=== PATIENT | female | born 2000 | race Caucasian/White ===

== ENCOUNTER 2019-08-24 10:40 | Outpatient (CLI) | payer MEDICAID, SELFPAY ==
--- NOTE | ~2019-08-24 | US_ITS ---
EXAMINATION: US OB <= 14 weeks fetus DATE: 08/24/2019 11:27 INDICATION: First trimester dating TECHNIQUE: Real-time pelvic transabdominal and transvaginal ultrasound was performed. COMPARISON: None. FINDINGS: The uterus measures 12.0 x 6.2 x 8.7 cm. There is an intrauterine gestational sac. A yolk sac is identified. heart motion is identified measuring 157 beats per minute (bpm) by M-mode Do ppler. The crown rump length measures 3.8 cm , which correlates with an estimated gestational a ge of 10 weeks and 5 day(s) (+/-) 7 day(s). The right ovary measures 3.0 x 1.5 x 1.5 cm. The left ovary measures 1.3 x 3.4 x 1.9 cm. There is nor mal vascular flow in the ovaries. There is no free fluid in the pelvis. IMPRESSION: 1. Live intrauterine with an estimated gestational age of 10 weeks and 5 day(s) (+/-) 7 day (s) and an estimated delivery date of 03/16/2020. Reviewed, dictated and finalized at location A. IMPRESSION: 1. Live intrauterine with an estimated gestational age of 10 weeks an d 5 day(s) (+/-) 7 day(s) and an estimated delivery date of 03/16/2020.
== END 2019-08-24 10:41 | disposition home or self-care (01) ==
LOC: ANHIMG 10:49
PROVIDERS: Visit Provider Obstetrics & Gynecology
DX: Z34.91 Encounter for supervision of normal pregnancy, unspecified, first trimester (principal); Z3A.10 10 weeks gestation of pregnancy
CPT/HCPCS: 76801

== ENCOUNTER 2020-01-24 12:56 | Outpatient (RCR) | payer OTHER, SELFPAY | END 2020-02-18 07:19 | disposition home or self-care (01) | LOC: ANHOBOP 12:56 | PROVIDERS: Visit Provider Obstetrics & Gynecology | DX: O24.419 Gestational diabetes mellitus in pregnancy, unspecified control (principal); Z3A.00 Weeks of gestation of pregnancy not specified | CPT/HCPCS: 99199 ==

== ENCOUNTER 2020-03-11 06:27 | Inpatient (IN) | payer OTHER, SELFPAY ==
[2020-03-11] VITALS (83 sets, daily range): BP systolic 80–136; BP diastolic 40–89; PULSE 74–131; RESP 16; TEMP 36.6–36.9; O2SAT 84–100; BMI 21.9
--- NOTE | 2020-03-11 07:04 | LDADM ---
This patient, Donna Chowdhury, was admitted to Labor/Delivery/Recovery 105 on 03/11/20 at 06:27. Plans for labor, pain management and were discussed with patient. Patient/family oriented to hospital policies and general routines including ID bracelet, bed and alarms, visiting hours, pain management, procedures, bathroom and other care routines, personal items, smoking policy, room service/diet and guest tray routines, security routines, and visiting hours. Patient/Family are encouraged to report perceived risks to care and to ask questions if they do not understand what they are told or what they should do. See OBIX for further documentation.
[2020-03-11] MEDS: LACTATED RINGERS 1,000 ML 125 ML IV CONT ×2 (07:16→09:39)
[2020-03-11 07:17] LABS: Glucose Point of Care 113 (65-105)
[2020-03-11] MEDS: OXYTOCIN 30 UNITS/NS 500 ML 30 UNITS/500 ML BAG 6 UNITS IV CONT (07:17)
--- NOTE | 2020-03-11 07:35 | WPDOBADMIT ---
Obstetrics - Admit Note Admission Note: record reviewed. No pertinent additions to the history and/or any subsequent changes in the physical findings that are not consistent with the expected course of the were found.MIL, /-1, AROM small amount of clear odorless fluid Additions to the history and/or subsequent changes in the physical findings follow. None.
[2020-03-11 07:46] LABS: Basophils Percent Auto 0.4 % (0.2-1.2); Eosinophils Absolute Auto 0.2 K/mm3 (0-0.3); Eosinophils Percent Auto 2.4 % (0-4.4); Hematocrit 34.2 % (37.0-47.0); Hemoglobin 10.8 g/dL (12.0-15.0); Immature Granulocyte Absolute 0.06 K/mm3 (0.00-0.031); Immature Granulocyte Percent A 0.7 % (0-0.5); Lymphocytes Absolute Auto 2.51 K/mm3 (0.9-3.2); Mean Corpuscular HGB Conc 31.6 g/dl (32-36); Mean Corpuscular Hemoglobin 23.9 pg (26-34); Mean Corpuscular Volume 75.8 fl (80-100); Mean Platelet Volume 11.6 fl (7.4-10.4); Monocytes Absolute Auto 0.6 K/mm3 (0.1-0.6); Monocytes Percent Auto 6.8 % (2.6-8.5); Neutrophils Percent Auto 59.7 % (45.5-73.1); Platelet Count Result 174 k/mm3 (150-375); Red Blood Count 4.51 M/mm3 (4.2-5.4); White Blood Count 8.4 K/mm3 (4.5-10.0)
--- NOTE | 2020-03-11 07:53 | WPDANESEPP ---
Anes - Eval Pre Procedure Procedure: labor epidural Date/Time: 03/11/20 07:53 Surgeon: Eloy Pre Op Diagnosis: Induction of Labor Patient Data Age: 19 Gender: F Height: 5 ft 4 in Weight: 58 kg Last Vital Signs Pulse 88 03/11/20 07:45 BP 111/71 03/11/20 07:45 Allergies Allergy/AdvReac Type Severity Reaction Status Date / Time No Known Allergies Allergy Unverified 10/03/16 17:44 Home Medications Medication Instructions Recorded Confirmed Type levothyroxine 75 mcg PO DAILY 03/11/20 03/11/20 History ondansetron [Zofran ODT] 4 mg PO Q6H PRN 03/11/20 03/11/20 History vit no.[id number]-[id number] 1 tablet PO DAILY 03/11/20 03/11/20 History [Classic ] Laboratory Tests 03/11/20 03/11/20 03/11/20 06:46 06:46 06:46 WBC 8.4 K/mm3 K/mm3 (4.5-10.0) RBC 4.51 M/mm3 M/mm3 (4.2-5.4) Hgb 10.8 g/dL L g/dL (12.0-15.0) Hct 34.2 % L % (37.0-47.0) MCV 75.8 fl L fl (80-100) MCH 23.9 pg L pg (26-34) MCHC 31.6 g/dl L g/dl (32-36) RDW 14.0 % % (11.5-14.5) Plt Count 174 k/mm3 k/mm3 (150-375) MPV 11.6 fl H fl (7.4-10.4) Immature Gran % (Auto) 0.7 % H % (0-0.5) Neut % (Auto) 59.7 % % (45.5-73.1) Lymph % (Auto) 30.0 % % (18.3-44.2) [place] % (Auto) 6.8 % % (2.6-8.5) Eos % (Auto) 2.4 % % (0-4.4) Baso % (Auto) 0.4 % % (0.2-1.2) Lymph # (Auto) 2.51 K/mm3 K/mm3 (0.9-3.2) [place] # (Auto) 0.6 K/mm3 K/mm3 (0.1-0.6) Eos # (Auto) 0.2 K/mm3 K/mm3 (0-0.3) Baso # (Auto) 0.0 K/mm3 K/mm3 (0.0-0.1) Abs Immat Gran (auto) 0.06 K/mm3 H K/mm3 (0.00-0.031) Absolute Neuts (auto) 5.0 K/mm3 K/mm3 (1.3-6.7) Absolute Nucleated RBC 0.0 K/mm3 K/mm3 (0.0-0.012) Nucleated RBC % 0.0 % % (0.0-0.2) POC Capillary Glucose TSH Pending RPR Pending 03/11/20 07:12 WBC RBC Hgb Hct MCV MCH MCHC RDW Plt Count MPV Immature Gran % (Auto) Neut % (Auto) Lymph % (Auto) [place] % (Auto) Eos % (Auto) Baso % (Auto) Lymph # (Auto) [place] # (Auto) Eos # (Auto) Baso # (Auto) Abs Immat Gran (auto) Absolute Neuts (auto) Absolute Nucleated RBC Nucleated RBC % POC Capillary Glucose 113 mg/dl H mg/dl (65-105) TSH RPR Patient hx anesthesia problems: none Family hx anesthesia problems: none [facility] Past Medical History Medical History (Updated 03/11/20 @ 07:54 by Kelvin Hernandez CRNA) Hypothyroid Social History Social History Smoking status: Former smoker Substance use: never Gender identity (if verbalized by the patient): Female Sexual Orientation (if Verbalized by the Patient): Straight or Heterosexual Spiritual care concerns: No Exam Day of Procedure 03/11/20 07:53 Patient weight: normal Heart: regular rate and rhythm Lungs: clear to auscultation and normal air movement Neurological: alert and oriented
[2020-03-11] MEDS: fentaNYL CITRATE INJ (*CRX) 100 MCG/2 ML VIAL 50 MCG IV PUSH (09:42)
[2020-03-11 12:25] LABS: Glucose Point of Care 74 (65-105)
--- NOTE | 2020-03-11 15:49 | PM.OBPRVD ---
OB - Delivery Note Procedure Delivery date: 03/11/20 (vaginal delivery) events: Gestational Diabetes Intrapartal events: None Induction method: AROM and per pitocin protocol Delivery monitor: external FHT and external uterine Route of delivery: Laceration Description: Perineal - 1st Degree Delivery repair: vicryl Specimen: Yes Quantitative Blood Loss (ml): 322 Anesthesia type: Epidural Disposition: other () Baby Date of : 03/11/20 Time of : 15:33 Weeks of gestation at delivery: 39 Infant gender: Male Weight (pounds): 7 Weight (ounces): 8 presentation: vertex position: Left Occiput Anterior Placenta delivery description: Spontaneous and Abnormal Configuration (heart shaped, hx uterine septum) cord vessel description: 3 Vessels, Nuchal Cord, Tight and Clamped/Cut score one minute: 7 score five minutes: 9 Narrative: unable to deliver through cor, cut and clamped on perineum, baby delivered easily, to warmer with rn, mother and baby in stable condition
--- NOTE | 2020-03-11 15:52 | PM.IMHP ---
H&P: HPI History of Present Illness Date/Time: 03/11/20 15:52 Chief Complaint: MIL for GDM diet controlled Narrative: Donna Chowdhury is a 19 year old female [facility] Past Medical History Medical History (Updated 03/11/20 @ 15:52 by Camille Quintero CNM) Hypothyroid Social History Social History Smoking status: Former smoker Substance use: never Gender identity (if verbalized by the patient): Female Sexual Orientation (if Verbalized by the Patient): Straight or Heterosexual Spiritual care concerns: No Meds Home Medications and Allergies Home Medications Medication Instructions Recorded Confirmed Type levothyroxine 75 mcg PO DAILY 03/11/20 03/11/20 History ondansetron [Zofran ODT] 4 mg PO Q6H PRN 03/11/20 03/11/20 History vit no.[id number] 1 tablet PO DAILY 03/11/20 03/11/20 History [Classic ] Allergies Allergy/AdvReac Type Severity Reaction Status Date / Time No Known Allergies Allergy Unverified 10/03/16 17:44 Vital Signs Vital Signs - 24 hr 03/11/20 07:05 03/11/20 07:15 03/11/20 07:30 Temperature 36.6 C Pulse Rate 105 H 103 H Blood Pressure 108/69 98/67 L Pulse Oximetry 03/11/20 07:31 03/11/20 07:45 03/11/20 08:00 Temperature Pulse Rate 104 H 88 84 Blood Pressure 102/65 111/71 113/74 Pulse Oximetry 03/11/20 08:15 03/11/20 08:30 03/11/20 09:00 Temperature Pulse Rate 90 92 106 H Blood Pressure 100/64 93/51 L 110/75 Pulse Oximetry 03/11/20 09:30 03/11/20 09:54 03/11/20 10:00 Temperature 36.6 C Pulse Rate 88 105 H Blood Pressure 103/81 136/83 Pulse Oximetry 100 03/11/20 10:03 03/11/20 10:04 03/11/20 10:05 Temperature Pulse Rate 104 H 105 H Blood Pressure 119/78 112/70 Pulse Oximetry 98 85 L 03/11/20 10:06 03/11/20 10:08 03/11/20 10:10 Temperature Pulse Rate 104 H 94 97 Blood Pressure 109/79 110/74 108/69 Pulse Oximetry 100 03/11/20 10:12 03/11/20 10:14 03/11/20 10:15 Temperature Pulse Rate 99 102 H Blood Pressure 110/60 106/60 Pulse Oximetry 99 03/11/20 10:16 03/11/20 10:18 03/11/20 10:20 Temperature Pulse Rate 81 85 98 Blood Pressure 118/70 115/66 106/63 Pulse Oximetry 100 03/11/20 10:22 03/11/20 10:24 03/11/20 10:25 Temperature Pulse Rate 100 83 Blood Pressure 104/62 107/68 Pulse Oximetry 100 03/11/20 10:26 03/11/20 10:28 03/11/20 10:30 Temperature Pulse Rate 114 H 92 83 Blood Pressure 94/61 L 100/72 107/67 Pulse Oximetry 100 03/11/20 10:32 03/11/20 10:34 03/11/20 10:35 Temperature Pulse Rate 98 79 Blood Pressure 106/63 109/67 Pulse Oximetry 99 03/11/20 10:36 03/11/20 10:39 03/11/20 10:40 Temperature Pulse Rate 117 H 126 H 103 H Blood Pressure 100/50 L 129/84 124/75 Pulse Oximetry 03/11/20 10:41 03/11/20 10:42 03/11/20 10:44 Temperature Pulse Rate 87 89 Blood Pressure 111/53 L 108/70 Pulse Oximetry 100 03/11/20 10:46 03/11/20 10:48 03/11/20 10:50 Temperature Pulse Rate 95 88 88 Blood Pressure 94/56 L 99/69 L 98/60 L Pulse Oximetry 99 100 03/11/20 10:55 03/11/20 11:00 03/11/20 11:01 Temperature Pulse Rate 80 Blood Pressure 98/49 L Pulse Oximetry 100 99 03/11/20 11:05 03/11/20 11:10 03/11/20 11:15 Temperature Pulse Rate 81 Blood Pressure 97/63 L Pulse Oximetry 100 99 100 03/11/20 11:20 03/11/20 11:25 03/11/20 11:26 Temperature Pulse Rate Blood Pressure Pulse Oximetry 100 100 100 03/11/20 11:30 03/11/20 11:31 03/11/20 11:45 Temperature 36.8 C Pulse Rate 84 76 Blood Pressure 93/54 L 94/54 L Pulse Oximetry 100 03/11/20 12:00 03/11/20 12:15 03/11/20 12:30 Temperature Pulse Rate 76 76 89 Blood Pressure 80/40 L 96/61 L 104/68 Pulse Oximetry 03/11/20 12:45 03/11/20 13:00 03/11/20 13:15 Temperature 36.8 C Pulse Rate 81 90 110 H Blood Pressure 97/71 L 98/58 L 104/65 Pulse Oximetry 02/27
[2020-03-11] MEDS: OXYTOCIN 30 UNITS/NS 500 ML 30 UNITS/500 ML BAG 125 UNITS IV CONT (16:06)
[2020-03-11] MEDS: ceFAZolin 2 GM/D5W 50 ML 2 GM/50 ML BAG IVPB (16:06)
--- NOTE | 2020-03-11 19:05 | OBPPTRN ---
Patient transferred to post room #285 via wheelchair. Support person present. Oriented to unit, room, information board, rooming in, admission packet and security measures. Patient verbalizes understanding.
[2020-03-11] MEDS: IBUPROFEN 600 MG TABLET PO (19:35)
[2020-03-12] MEDS: IBUPROFEN 600 MG TABLET PO ×3 (04:32→23:10)
[2020-03-12 05:37] LABS: Hematocrit 29.2 % (37.0-47.0); Hemoglobin 9.1 g/dL (12.0-15.0)
[2020-03-12] MEDS: MULTIVIT/MIN/PREN/FOL AC/IRON TABLET 1 TAB PO (06:59)
[2020-03-12] MEDS: POLYSACCHARIDE IRON COMPLEX 150 MG CAPSULE PO ×2 (06:59→16:36)
[2020-03-12] MEDS: LEVOTHYROXINE SODIUM 75 MCG TABLET PO (06:59)
[2020-03-12] MEDS: DOCUSATE SODIUM 100 MG CAPSULE PO ×2 (06:59→16:36)
[2020-03-12] MEDS: LANOLIN (LANSINOH) 7.5 GM CREAM 1 APPLIC TOPICAL (07:57)
--- NOTE | 2020-03-12 07:59 | P.PNOB_ITS ---
OB - PN: Subj Subjective Date/time seen: 03/12/20 07:59 Patient comments: no complaints baby status: doing well OB - PN: Obj Data Labs CBC & Chem 7: 03/12/20 04:54 Labs: Laboratory Results - last 24 hr 03/11/20 03/11/20 03/11/20 06:46 06:46 12:23 Hgb Hct POC Capillary Glucose 74 TSH 4.410 Blood Type O Positive Antibody Screen Negative 03/12/20 04:54 Hgb 9.1 L Hct 29.2 L POC Capillary Glucose TSH Blood Type Antibody Screen OB - PN A/P Plan day: 1 Plan: routine care Time Spent With Patient Time: Total time spent is greater than 50% in coordination of care (as documented) at patient's floor/unit and/or counseling patient: Time with patient: less than 15 minutes Review of Systems Review of Systems: All systems reviewed & are unremarkable except as noted in HPI and below Exam Narrative: Exam Narrative: Fundus firm and vaginal flow controlled. No lower ext redness, warmth, or edema. Negative homans. Const: General: comfortable Chest: Breast/axilla inspection: normal inspection of the breasts Resp: Effort & Inspection: normal respiratory effort Cardio: Rate: regular rate GI: GI Palp: Yes Soft to palpation Psych: Appearance: grossly normal Affect: normal affect Attitude: co operative Thought content: Yes Normal thought content present Judgement: Good judgement present (Psych)
[2020-03-12 08:25] VITALS: BP 84/49; PULSE 81; RESP 16; TEMP 36.9; O2SAT 98
[2020-03-12 09:10] LABS: Rapid Plasma Reagin Non-Reactive (NonReactive)
--- NOTE | 2020-03-12 11:19 | WPDANLDPN2 ---
Anes-Prog Note L&D Date/Time: 03/12/20 11:19 Comfortable throughout: labor Neuraxial method: epidural Epidural/Spinal procedure site: clean & non-tender Neuro status: Neuro function grossly intact. Cardiovascular status: normal Respiratory status: normal Airway patency: baseline Mental status: baseline Post-Op hydration status: normal Vital Signs: Last Vital Signs Temp 36.9 C 03/12/20 08:25 Pulse 81 03/12/20 08:25 Resp 16 03/12/20 08:25 BP 84/49 L 03/12/20 08:25 Pulse Ox 98 03/12/20 08:25 Pain score (VAS): 0/10. Patient resting in bed at time of assessment, appears comfortable. Support person at bedside. I/O: Intake & Output 03/11/20 03/12/20 03/12/20 23:59 07:59 15:59 Intake Total 2049 Balance 2049 Post-procedural complaints: none Patient feedback: Patient satisfied with anesthetic care.
[2020-03-12 20:05] VITALS: BP 111/67; PULSE 103; RESP 16; TEMP 36.8; O2SAT 99
[2020-03-13] MEDS: DOCUSATE SODIUM 100 MG CAPSULE PO (06:30)
[2020-03-13] MEDS: POLYSACCHARIDE IRON COMPLEX 150 MG CAPSULE PO (06:30)
[2020-03-13] MEDS: LEVOTHYROXINE SODIUM 75 MCG TABLET PO (06:30)
[2020-03-13] MEDS: MULTIVIT/MIN/PREN/FOL AC/IRON TABLET 1 TAB PO (06:30)
[2020-03-13] MEDS: IBUPROFEN 600 MG TABLET PO (06:31)
[2020-03-13 07:50] VITALS: BP 112/60; PULSE 94; RESP 18; TEMP 36.8
--- NOTE | 2020-03-13 07:51 | P.PNOB_ITS ---
OB - PN: Subj Subjective Date/time seen: 03/13/20 07:51 c/o abscess in tooth, has appt at [facility] wanting antibiotics on d/c Patient comments: no complaints [place] baby status: doing well OB - PN: Obj Data Labs CBC & Chem 7: 03/12/20 04:54 Labs: Laboratory Results - last 24 hr 03/11/20 06:46 RPR Non-reactive OB - PN A/P Plan day: 2 Plan: routine care and discharge home Time Spent With Patient Time: Total time spent is greater than 50% in coordination of care (as documented) at patient's floor/unit and/or counseling patient: Review of Systems Review of Systems: All systems reviewed & are unremarkable except as noted in HPI and below Exam Const: General: cooperative Orientation/consciousness: patient oriented x3
--- NOTE | 2020-03-13 07:53 | PM.OBDSVD ---
DS: Admitting Diagnosis Admitting Diagnosis Admitting Diagnosis: Elective induction, GDM OB - DS: Summary OB Procedures : None OB Procedures Intrapartum: Spontaneous Vag Delivery OB Procedures: : None Time Spent with Patient Time attestation: Total time spent providing and/or coordinating discharge services: DS: Data Data Completed and Pending Pending studies at discharge: Pending at discharge 03/11/20 16:46 Surgical [PTH] Routine Labs on day of discharge: Labs from last 24 hours 03/11/20 06:46 RPR Non-reactive Discharge Plan Discharge Attending physician on discharge: Rosalinda Lyons Discharging Clinician: Camille Quintreo Patient Disposition: Home, Self-Care Activity: pelvic rest Diet: regular Patient Instructions: Antibiotic Form Stand Alone Forms: General Discharge Information Follow-up/Referrals: Camille Quintero CNM [Certified Nurse Setter Helper] - 4 Weeks Discharge Medications: Continued levothyroxine 75 mcg Capsule 75 mcg PO DAILY RF: 0 Classic 28 mg iron- 800 mcg Tablet 1 tablet PO DAILY RF: 0 Discontinued ondansetron [Zofran ODT] 4 mg Tablet,Disintegrating 4 mg PO Q6H PRN (Reason: nausea) RF: 0 Date of admission: 03/11/20 06:27 Primary Care Provider: PHYSICIAN,[employer]QUIPMENT TENDER Admitting Provider: Rosalinda Lyons Attending physician on admission: Rosalinda Lyons Condition: Stable
[2020-03-13] MEDS: MEASLES,MUMPS,RUBELLA VACCINE 0.5 ML VIAL SUB-Q (12:08)
[2020-03-14 09:05] VITALS: BP 90/62; PULSE 87; RESP 16; TEMP 37.3; O2SAT 100
== END 2020-03-13 12:25 | disposition home or self-care (01) | DRG 560 ==
LOC: ANHLDR 06:39 → ANHOB2 19:14
PROVIDERS: Advanced Practice Midwife; Admitting Provider Obstetrics & Gynecology; Visit Provider Obstetrics & Gynecology
DX: O69.1XX0 Labor and delivery complicated by cord around neck, with compression, not applicable or unspecified (principal); O70.0 First degree perineal laceration during delivery; O24.420 Gestational diabetes mellitus in childbirth, diet controlled; Z3A.39 39 weeks gestation of pregnancy; Z37.0 Single live birth
CPT/HCPCS: 36415; 84443; 85014; 85018; 85025; 86592; 86850; 86900; 86901; 88307; 90710; A9270; J0131; J0690; J2590; J2795; J3010; J7120

== ENCOUNTER 2020-05-08 12:51 | Emergency (ER) | payer OTHER, SELFPAY ==
[2020-05-08 12:59] VITALS: BP 96/67; PULSE 78; RESP 18; TEMP 36.8; O2SAT 99
--- NOTE | 2020-05-08 14:21 | ED.DENTAL ---
HPI - Dental/Oral General Chief complaint: Dental/Oral <Warren Kraus PA-C - Last Filed: 05/08/20 14:24> Stated complaint: dental pain <Warren Kraus PA-C - Last Filed: 05/08/20 14:24> Time Seen by Provider: 05/08/20 12:54 <Warren Kraus PA-C - Last Filed: 05/08/20 14:24> Source: patient <Warren Kraus PA-C - Last Filed: 05/08/20 14:24> Mode of arrival: ambulatory <Warren Kraus PA-C - Last Filed: 05/08/20 14:24> Limitations: no limitations <Warren Kraus PA-C - Last Filed: 05/08/20 14:24> History of Present Illness HPI Narrative: Patient is a 20-year-old female who presents with right-sided jaw pain history of gross dental decay has close follow-up with dental school notes she has had this issue in the past as well not currently take anything for symptoms does not appear distressed or uncomfortable on arrival <Warren Kraus PA-C - Last Filed: 05/08/20 14:24> Related Data Allergies/adverse reactions: Allergies Allergy/AdvReac Type Severity Reaction Status Date / Time No Known Allergies Allergy Verified 05/08/20 13:02 <Warren Kraus PA-C - Last Filed: 05/08/20 14:24> Review of Systems Review of Systems: All systems reviewed & are unremarkable except as noted in HPI and below <Warren Kraus PA-C - Last Filed: 05/08/20 14:24> PMFSH Past Medical History Medical History: Medical History Hypothyroid <Warren Kraus PA-C - Last Filed: 05/08/20 14:24> Social History Social History: Social History Smoking status: Former smoker Substance use: never Gender identity (if verbalized by the patient): Female Spiritual care concerns: No <Warren Kraus PA-C - Last Filed: 05/08/20 14:24> Exam Narrative: Exam Narrative: GENERAL: Well-appearing, well-nourished, and in no acute distress. HEAD: Normocephalic, atraumatic. EYES: PERRLA and EOMI. ENT: Nares clear, no rhinorrhea or epistaxis. Mucous membranes moist. Gross dental caries no space-occupying lesions noted uvula midline no trismus or drooling NECK: Supple. No adenopathy or masses. CHEST: Clear to auscultation. No respiratory distress. No wheezes rales or rhonchi HEART: Regular rate and rhythm. No murmur heard. EXTREMITIES: Normal range of motion. No edema. SKIN: Warm, dry, no rash. NEURO: No focal deficits. Alert and oriented x3. Cranial nerves II through XII grossly intact PSYCH: Normal mood and affect. <NOMI Koch Last Filed: 05/08/20 14:24> Course Course Emergency Course: Patient in the room aware of case findings treatment plan diagnosis agreeing to follow-up with dentistry as planned felt appropriate for outpatient reevaluation agreeing to return if symptoms worsen <NOMI Koch Last Filed: 05/08/20 14:24> Vital Signs Vital signs: Vital Signs Temperature 98.3 F 05/08/20 12:59 Pulse Rate 78 05/08/20 12:59 Respiratory Rate 18 05/08/20 12:59 Blood Pressure 96/67 L 05/08/20 12:59 Pulse Oximetry 99 05/08/20 12:59 Temperature 98.3 F 05/08/20 12:59 Pulse Rate 78 05/08/20 12:59 Respiratory Rate 18 05/08/20 12:59 Blood Pressure 96/67 L 05/08/20 12:59 Pulse Oximetry 99 05/08/20 12:59 <NOMI Koch Last Filed: 05/08/20 14:24> Vital Signs Temperature 98.3 F 05/08/20 12:59 Pulse Rate 78 05/08/20 12:59 Respiratory Rate 18 05/08/20 12:59 Blood Pressure 96/67 L 05/08/20 12:59 Pulse Oximetry 99 05/08/20 12:59 Temperature 98.3 F 05/08/20 12:59 Pulse Rate 78 05/08/20 12:59 Respiratory Rate 18 05/08/20 12:59 Blood Pressure 96/67 L 05/08/20 12:59 Pulse Oximetry 99 05/08/20 12:59 <Rosette Sheets MD - Last Filed: 05/08/20 15:59> MDM - Dental/Oral MDM Narrative Medical decision making narrative: P
== END 2020-05-08 14:39 | disposition home or self-care (01) ==
PROVIDERS: Emergency Provider General Practice; PCP Family Medicine
DX: K04.7 Periapical abscess without sinus (principal); E03.9 Hypothyroidism, unspecified; Z87.891 Personal history of nicotine dependence
CPT/HCPCS: 99283

== ENCOUNTER 2020-08-22 15:38 | Emergency (ER) | payer OTHER, SELFPAY ==
[2020-08-22 15:40] VITALS: BP 137/88; PULSE 87; RESP 16; TEMP 37; O2SAT 100
[2020-08-22 16:58] LABS: Basophils Percent Auto 0.7 % (0.2-1.2); Eosinophils Absolute Auto 0.2 K/mm3 (0-0.3); Eosinophils Percent Auto 3.3 % (0-4.4); Hematocrit 40.6 % (37.0-47.0); Hemoglobin 12.6 g/dL (12.0-15.0); Lymphocytes Absolute Auto 1.48 K/mm3 (0.9-3.2); Lymphocytes Percent Auto 27.3 % (18.3-44.2); Mean Corpuscular Hemoglobin 24.5 pg (26-34); Mean Corpuscular Volume 78.8 fl (80-100); Mean Platelet Volume 11.6 fl (7.4-10.4); Monocytes Absolute Auto 0.4 K/mm3 (0.1-0.6); Monocytes Percent Auto 7.6 % (2.6-8.5); Neutrophils Absolute Auto 3.3 K/mm3 (1.3-6.7); Neutrophils Percent Auto 61.1 % (45.5-73.1); Platelet Count Result 194 k/mm3 (150-375); Red Blood Count 5.15 M/mm3 (4.2-5.4); Red Cell Distribution Width 16.1 % (11.5-14.5); White Blood Count 5.4 K/mm3 (4.5-10.0)
[2020-08-22 17:08] LABS: Alanine Aminotransferase 10 U/L (4-35); Albumin Level 4.5 g/dL (3.5-5.1); Alkaline Phosphatase 45 U/L (38-126); Anion Gap 8 mmol/L (8-16); Aspartate Amino Transferase 22 U/L (14-36); Bilirubin,Total 0.5 mg/dL (0.2-1.3); Blood Urea Nitrogen 8 mg/dL (7-17); Calcium 9.5 mg/dL (8.4-10.2); Carbon Dioxide 26 mmol/L (22-30); Chloride 105 mmol/L (98-107); Estimated CRCL calculation 78 ml/min; Estimated Glomerular Filt Rate > 60; Glucose 112 mg/dL (65-105); Lipase 93 U/L (23-300); Potassium 4.3 mmol/L (3.4-5.0); Sodium 139 mmol/L (137-145)
[2020-08-22 17:09] LABS: Acetaminophen 11 ug/mL (10-30)
[2020-08-22 17:21] LABS: Add Urine Microscopic? YES; Appearance Urine Cloudy (Clear); Bacteria Urine Trace /hpf; Bilirubin Urine Negative (Negative); Blood Urine Negative (Negative); Color Urine Straw (Yellow); Glucose Urine UA Negative (Negative); Ketones Urine Negative (Negative); Leukocyte Esterase Ur 3+ LEU/UL (Negative); Mucus Urine Rare /lpf; Nitrate Urine Negative (Negative); Protein Urine Negative (Negative); RBC Urine 0-2 /hpf (0-2); Specific Grav Ur 1.006 (1.001-1.035); Squamous Epithelial Cell Urine Many /hpf (Few); Urobilinogen Urine Negative mg/dL (<2.0)
[2020-08-22 17:24] LABS: Amphetamine Screen Urine Negative (Negative); Barbiturate Screen Urine Negative (Negative); Benzodiazepines Screen Urine Negative (Negative); Cannabinoid Screen Urine Negative (Negative); Cocaine Screen Urine Negative (Negative); Methadone Screen Urine Negative (Negative); Opiate Screen Urine Negative (Negative); Phencyclidine Screen Urine Negative (Negative)
--- NOTE | 2020-08-22 18:20 | ED.DENTAL ---
HPI - Dental/Oral General Chief complaint: Dental/Oral Stated complaint: my mom gave me pills now i'm vomiting Time Seen by Provider: 08/22/20 17:28 Source: patient Mode of arrival: ambulatory Limitations: no limitations History of Present Illness HPI Narrative: Patient complaining of lower gum pain started yesterday, status post root canal procedure 2 days ago. Patient denies any fever, chills, nausea, vomiting, headache Related Data Allergies Allergy/AdvReac Type Severity Reaction Status Date / Time No Known Allergies Allergy Verified 05/08/20 13:02 Review of Systems Review of Systems: Narrative: CONSTITUTIONAL: Denies fever, chills, or sweats. EYES: Denies visual changes, redness, or discharge. ENT: Denies rhinorrhea, congestion, sore throat, or otalgia. CARDIOVASCULAR: Denies chest pain, palpitations, or edema. RESPIRATORY: Denies cough or dyspnea. GASTROINTESTINAL: Denies abdominal pain, nausea, vomiting, or diarrhea. GENITOURINARY: Denies dysuria or hematuria. SKIN: Denies rash or itching. MUSCULOSKELETAL: Denies back pain, joint pain, or myalgia. NEUROLOGIC: Denies headache, numbness, or weakness. PSYCHIATRIC: Denies anxiety or depression. PMFSH Past Medical History Medical History Hypothyroid Social History Social History Smoking status: Former smoker Substance use: never Gender identity (if verbalized by the patient): Female Spiritual care concerns: No Exam Narrative: Exam Narrative: General appearance: Well-developed, well-nourished Skin: Normal color Head: Normocephalic, nontraumatic Eyes: Clear conjunctiva ENT: Oropharynx normal, ears normal, nose normal, diffuse tenderness lower gum, dental caries, no swelling Neck: Supple, nontender Neurologic: Alert and oriented ?3, PIGMENT MIXER is normal as tested, no gross motor deficit Course Course Emergency Course: Stable Vital Signs Vital signs: Vital Signs Temperature 37.0 C 08/22/20 15:40 Pulse Rate 87 08/22/20 15:40 Respiratory Rate 16 08/22/20 15:40 Blood Pressure 137/88 08/22/20 15:40 Pulse Oximetry 100 08/22/20 15:40 Temperature 37.0 C 08/22/20 15:40 Pulse Rate 87 08/22/20 15:40 Respiratory Rate 16 08/22/20 15:40 Blood Pressure 137/88 08/22/20 15:40 Pulse Oximetry 100 08/22/20 15:40 MDM - Dental/Oral MDM Narrative Medical decision making narrative: Dental infection Lab Data Result diagrams: 08/22/20 16:52 08/22/20 16:52 Labs: Lab Results 08/22/20 08/22/20 08/22/20 Range/Units 16:52 16:52 16:52 WBC 5.4 (4.5-10.0) K/mm3 RBC 5.15 (4.2-5.4) M/mm3 Hgb 12.6 D (12.0-15.0) g/dL Hct 40.6 (37.0-47.0) % MCV 78.8 L (80-100) fl MCH 24.5 L (26-34) pg MCHC 31.0 L (32-36) g/dl RDW 16.1 H (11.5-14.5) % Plt Count 194 (150-375) k/mm3 MPV 11.6 H (7.4-10.4) fl Immature Gran % (Auto) 0.0 (0-0.5) % Neut % (Auto) 61.1 (45.5-73.1) % Lymph % (Auto) 27.3 (18.3-44.2) % [place] % (Auto) 7.6 (2.6-8.5) % Eos % (Auto) 3.3 (0-4.4) % Baso % (Auto) 0.7 (0.2-1.2) % Lymph # (Auto) 1.48 (0.9-3.2) K/mm3 [place] # (Auto) 0.4 (0.1-0.6) K/mm3 Eos # (Auto) 0.2 (0-0.3) K/mm3 Baso # (Auto) 0.0 (0.0-0.1) K/mm3 Abs Immat Gran (auto) 0.00 (0.00-0.031) K/mm3 Absolute Neuts (auto) 3.3 (1.3-6.7) K/mm3 Absolute Nucleated RBC 0.0 (0.0-0.012) K/mm3 Nucleated RBC % 0.0 (0.0-0.2) % Sodium 139 (137-145) mmol/L Potassium 4.3 (3.4-5.0) mmol/L Chloride 105 (98-107) mmol/L Carbon Dioxide 26 (22-
[2020-08-22] MEDS: IBUPROFEN 400 MG TABLET 800 MG PO (18:46)
[2020-08-22 18:49] VITALS: BP 108/73; PULSE 100; RESP 18; TEMP 37.3; O2SAT 98
== END 2020-08-22 18:49 | disposition home or self-care (01) ==
PROVIDERS: Physician Assistant; Emergency Provider Emergency Medicine; PCP Family Medicine
DX: K08.89 Other specified disorders of teeth and supporting structures (principal)
CPT/HCPCS: 36415; 80053; 80307; 81001; 81025; 83690; 85025; 87086; 99283; A9270

== ENCOUNTER 2021-01-03 14:01 | Emergency (ER) | payer OTHER, SELFPAY ==
[2021-01-03 14:04] VITALS: BP 96/62; PULSE 92; RESP 16; TEMP 36.9; O2SAT 100
--- NOTE | 2021-01-03 15:37 | PC.NURSE ---
pt up to desk stating that she was going to go home and come back later tonight. will try baths.
== END 2021-01-03 15:37 | disposition left against medical advice (07) ==
DX: N90.7 Vulvar cyst (principal)
CPT/HCPCS: 99199